=== PATIENT | male | born 1980 | race Caucasian/White ===

== ENCOUNTER 2018-07-29 22:55 | Emergency (ER) | payer OTHER ==
--- NOTE | 2018-07-29 23:06 | PDOC ---
History of Present Illness - General History Source: Patient Exam Limitations: No Limitations - History of Present Illness Initial Comments: 07/29/18 23:32 The patient is a 37 year old male, with a significant past medical history of diverticulitis who presents to the emergency department with 3 days of left upper quadrant abdominal pain. The patient notes he started feeling weird and out of it on Sunday and his pain has gradually gotten worse. The patient reports he felt constipated over the weekend and took laxative with relief. The patient notes this pain is similar to his prior diverticulitis. The patient notes the recurrent diverticulitis usually occurs when he is stressed. The patient notes he had a sandwich earlier today. The patient denies chest pain, shortness of breath, headache or dizziness. The patient denies fever, chills, nausea, or vomit. The patient denies dysuria, frequency, urgency or hematuria. Allergies: NKDA Past surgical history: None reported. Social history: Everyday smoker (5 cigarettes a day). No alcohol use. <Ruma Cazares - Last Filed: 07/29/18 23:31> <Shantelle Overton - Last Filed: 07/30/18 03:08> - General Chief Complaint: Pain, Acute Stated Complaint: PAIN LUQ SINCE SUNDAY Time Seen by Provider: 07/29/18 23:03 Past History <Ruma Cazares - Last Filed: 07/29/18 23:31> <Shantelle Overton - Last Filed: 07/30/18 03:08> - Past Medical History Allergies/Adverse Reactions: Allergies Allergy/AdvReac Type Severity Reaction Status Date / Time No Known Allergies Allergy Verified 07/29/18 22:59 Home Medications: Ambulatory Orders Dextroamphetamine/Amphetamine [Adderall 10 mg Tablet] 20 mg PO DAILY 07/29/18 Ciprofloxacin HCl [Cipro] 500 mg PO BID #20 tablet 07/30/18 metroNIDAZOLE [Flagyl -] 500 mg PO TID #30 tablet 07/30/18 Review of Systems - Review of Systems Able to Perform ROS?: Yes Comments:: 07/29/18 23:33 GENERAL/CONSTITUTIONAL: No fever or chills. No weakness. HEAD, EYES, EARS, NOSE AND THROAT: No change in vision. No ear pain or discharge. No sore throat. CARDIOVASCULAR: No chest pain or shortness of breath. RESPIRATORY: No cough, wheezing, or hemoptysis. GASTROINTESTINAL: (+) constipation. No nausea, vomiting, or diarrhea. GENITOURINARY: No dysuria, frequency, or change in urination. MUSCULOSKELETAL: (+) left upper quadrant abdominal pain. No neck or back pain. SKIN: No rash NEUROLOGIC: No headache, vertigo, loss of consciousness, or change in strength/ sensation. ENDOCRINE: No increased thirst. No abnormal weight change. HEMATOLOGIC/LYMPHATIC: No anemia, easy bleeding, or history of blood clots. ALLERGIC/IMMUNOLOGIC: No hives or skin allergy. All Other Systems: Reviewed and Negative <Ruma Cazares - Last Filed: 07/29/18 23:31> *Physical Exam - Vital Signs Last Vital Signs Temp Pulse Resp BP Pulse Ox 98.3 F 114 H 16 142/95 100 07/29/18 23:09 07/29/18 23:09 07/29/18 23:09 07/29/18 23:09 07/29/18 23:09 - Physical Exam Comments: 07/29/18 23:33 GENERAL: Awake, alert, and fully oriented, in no acute distress HEAD: No signs of trauma EYES: PERRLA, EOMI, sclera anicteric, conjunctiva clear ENT: Auricles normal inspection, hearing grossly normal, nares patent, oropharynx clear without exudates. Moist mucosa NECK: Normal ROM, supple, no lymphadenopathy, JVD, or masses LUNGS: Breath sounds equal, clear to auscultation bilaterally. No wheezes, and no crackles HEART: Regular rate and rhythm, normal S1 and S2, no murmurs, rubs or gallops ABDOMEN:(+) left upper quadrant abdominal tenderness. Soft, normoactive bowel sounds. No guarding, no rebound. No masses EXTREMITIES: Normal range of motion, no edema. No clubbing or cyanosis. No cords, erythema, or tenderness NEUROLOGICAL: Cranial nerves II through XII grossly intact. Normal speech, normal gait SKIN: Warm, Dry, normal turgor, no rashes or lesions noted. <Ruma Cazares - Last Filed: 07/29/18 23:31> Moderate Sedation - Procedure Monitoring Vital Signs: Procedure Monitoring Vital Signs Temperature 98.3 F 07/29/18 23:09 Pulse Rate 114 H 07/29/18 23:09 Respiratory Rate 16 07/29/18 23:09 Blood Pressure 142/95 07/29/18 23:09 O2 Sat by Pulse Oximetry (%) 100 07/29/18 23:09 <Ruma Cazares - Last Filed: 07/29/18 23:31> ED Treatment Course - LABORATORY CBC & Chemistry Diagram: 07/29/18 23:15 07/29/18 23:15 - ADDITIONAL ORDERS Additional order review: 07/29/18 23:15 RBC 5.33 MCV 90.6 MCHC 33.9 RDW 12.1 MPV 7.9 Neutrophils % 72.4 Lymphocytes % 18.3 Monocytes % 5.7 Eosinophils % 1.6 Basophils % 2.0 <Ruma Cazares - Last Filed: 07/29/18 23:31> - LABORATORY CBC & Chemistry Diagram: 07/29/18 23:15 07/29/18 23:15 <Shantelle Overton - Last Filed: 07/30/18 03:08> Progress Note - Progress Note Progress Note: Documentation has been prepared under my direction and personally reviewed by me in its entirety. I attest that this documented accurately reflects all work, treatment, procedures and medical decision making performed by me. <Shantelle Overton - Last Filed: 07/30/18 03:08> Medical Decision Making - Medical Decision Making As noted above, this 37-year-old man with a history of acute diverticulitis (4 previous episodes) but no other significant past medical history presents with a few day history of progressive left mid abdominal pain. The pain is very reminiscent of previous episodes of acute diverticulitis. He has no other associated symptoms. Exam as noted. CBC/chemistry profile sent. CBC notable for elevated white blood cell count 13, 700; no other significant abnormality seen on laboratory evaluation. Abdominal/pelvic CT with IV contrast performed: Preliminary interpretation by Imaging legal entity controller-uncomplicated diverticulitis of the descending colon just distal to the splenic flexure. No evidence of abscess or perforation. No other significant abnormality seen on the imaging study. Results discussed with the patient. The patient states that he previously has been treated with 2 antibiotic regimen. He recalls being on ciprofloxacin as well as Flagyl with good results. Patient given first dose of Cipro 500 mg/Flagyl 500 mg. Prescriptions for Cipro 500 mg twice a day and Flagyl 500 mg every 8 hours provided to patient ( sent to his pharmacy). Meanwhile, the patient should eat a light diet as tolerated. He should return to the ER if he has persistent vomiting or develops fever/severe abdominal pain. <Shantelle Overton - Last Filed: 07/30/18 03:08> *DC/Admit/Observation/Transfer - Attestations Scribe Attestion: 07/29/18 23:33 Documentation prepared by Ruma Cazares, acting as medical malpractice paralegal for Shantelle Overton MD <Ruma Cazares - Last Filed: 07/29/18 23:31> <Shantelle Overton - Last Filed: 07/30/18 03:08> Diagnosis at time of Disposition: Acute diverticulitis - Discharge Dispostion Disposition: HOME Condition at time of disposition: Stable - Prescriptions Prescriptions: Ciprofloxacin HCl [Cipro] 500 mg PO BID #20 tablet metroNIDAZOLE [Flagyl -] 500 mg PO TID #30 tablet - Patient Instructions Printed Discharge Instructions: Diverticulitis Additional Instructions: Drink plenty of water; light diet Cipro 500 mg twice a day for 10 days Flagyl 500 mg 3 times a day for 10 days Return to ER if you have severe, persistent pain/high fever/vomiting Follow-up with your exhaust worker on August 07 as scheduled
[2018-07-29 23:17] VITALS: BP 142/95; PULSE 114; TEMP 98.3; BMI 29.5
[2018-07-29 23:24] LABS: EOS % 1.6 % (0-4.5); HEMATOCRIT 48.3 % (35.4-49); HEMOGLOBIN 16.4 GM/dl (11.7-16.9); LYMPH % 18.3 % (8-40); MCH 30.7 pg (25.7-33.7); MCHC 33.9 g/dl (32.0-35.9); MEAN CELL VOLUME 90.6 fl (80-96); MEAN PLT VOLUME 7.9 fl (7.5-11.1); MONO % 5.7 % (3.8-10.2); NEUT % 72.4 % (42.8-82.8); PLATELET COUNT 302 K/MM3 (134-434); RBC 5.33 M/mm3 (4.00-5.60); RDW 12.1 % (11.9-15.9); WHITE BLOOD COUNT 13.7 K/mm3 (4.0-10.8)
[2018-07-29 23:39] LABS: ALBUMIN 4.3 g/dl (3.4-5.0); ALK PHOS 74 U/L (45-117); ANION GAP 10 MMOL/L (8-16); BILIRUBIN,TOTAL 0.8 mg/dl (0.2-1); BLOOD UREA NITROGEN 17 mg/dl (7-18); CALCIUM 9.9 mg/dl (8.5-10); CHLORIDE 97 mmol/L (98-107); CO2 29 mmol/L (21-32); CREATININE 1.1 mg/dl (0.55-1.3); GLUCOSE,RANDOM 140 mg/dl (74-106); POTASSIUM 3.7 mmol/L (3.5-5.1); SGOT/AST 20 U/L (15-37); SGPT/ALT 20 U/L (13-61); SODIUM 136 mmol/L (136-145)
[2018-07-29] MEDS ORDERED: SODIUM CHLORIDE 1,000 ML IV STA (23:42)
[2018-07-30] MEDS ORDERED: CIPROFLOXACIN 500 MG TABLET (RESTRICTED TO ID) PO ONE (00:37)
[2018-07-30] MEDS ORDERED: metroNIDAZOLE 250 MG TABLET PO ONE (00:37)
[2018-07-30] MEDS ORDERED: CIPROFLOXACIN 250 MG TABLET (RESTRICTED TO ID) PO ONE (00:39)
[2018-07-30] MEDS ORDERED: metroNIDAZOLE 250 MG TABLET ONE (00:39)
== END 2018-07-30 00:52 | disposition home or self-care (01) ==
LOC: FER 22:55
DX: K57.92 Diverticulitis of intestine, part unspecified, without perforation or abscess without bleeding (principal)
CPT/HCPCS: 36415; 74177-TC; 80053; 85025; 99281-25

== ENCOUNTER 2019-04-05 09:04 | Inpatient (IN) | payer OTHER ==
--- NOTE | 2019-04-05 09:47 | PDOC ---
History of Present Illness - General Chief Complaint: Pain Stated Complaint: RIGHT ABD PAIN Time Seen by Provider: 04/05/19 09:40 - History of Present Illness Initial Comments: 04/05/19 10:15 38 y/o M hx of ADHD and recurrent diverticulitis presents to the ER with 2 days of abdominal pain.He describes pain as sharp and diffuse but worse on his right side. Pain is 7/10 in severity and he took some flagyl he had at home with cbd oil but experienced no relief. Pain is exacerbated by movement and relieved with rest. Last bowel movement was two days ago and was unremarkable.He denies nausea, vomiting, diarrhea, tarry stool, bright blood per rectum, fevers, chills , urgency, hematuria, dysuria. Past History - Past Medical History Allergies/Adverse Reactions: Allergies Allergy/AdvReac Type Severity Reaction Status Date / Time No Known Allergies Allergy Verified 04/05/19 09:06 Home Medications: Ambulatory Orders Cannabidiol (Cbd) Extract ONCE 04/05/19 Dextroamphetamine/Amphetamine [Adderall Xr 20 mg Capsule] 20 mg PO DAILY PRN 07/23 metroNIDAZOLE [Flagyl -] 500 mg PO ONCE 04/05/19 COPD: No GI Disorders: Yes (DIVERTICULITIS X 5) - Psycho Social/Smoking Cessation Hx Smoking History: Current every day smoker Have you smoked in the past 12 months: Yes Number of Cigarettes Smoked Daily: 10 Information on smoking cessation initiated: Yes 'Breaking Loose' booklet given: 07/30/18 Hx Alcohol Use: No Drug/Substance Use Hx: No Review of Systems - Review of Systems Constitutional: No: Chills, Fever HEENTM: No: Eye Pain, Blurred Vision Respiratory: No: Cough, Shortness of Breath Cardiac (ROS): Yes: Lightheadedness. No: Chest Pain ABD/GI: No: Constipated, Nausea, Vomiting : No: Burning, Flank Pain, Hematuria Musculoskeletal: No: Back Pain, Muscle Pain Integumentary: No: Bruising, Change in Color Neurological: No: Headache, Numbness Hematologic/Lymphatic: No: Blood Clots, Easy Bleeding *Physical Exam - Vital Signs Last Vital Signs Temp Pulse Resp BP Pulse Ox 97.9 F 102 H 16 154/107 H 100 04/05/19 09:06 04/05/19 09:06 04/05/19 09:06 04/05/19 09:06 04/05/19 09:06 - Physical Exam Comments: 04/05/19 10:30 PE: GENERAL: Awake, alert, and fully oriented, in no acute distress HEAD: No signs of trauma, normocephalic, atraumatic EYES: EOMI, sclera anicteric, injected conjunctiva ENT: Auricles normal inspection, hearing grossly normal, nares patent, oropharynx clear without exudates. Moist mucosa NECK: Normal ROM, supple, no lymphadenopathy, JVD, or masses LUNGS: No distress, speaks full sentences, clear to auscultation bilaterally HEART: Regular rate and rhythm, normal S1 and S2, no murmurs, rubs or gallops, peripheral pulses normal and equal bilaterally. ABDOMEN: Soft,tenderness to palpation greater in the RUQ and RLQ. (+) guarding in RLQ. +rebound tenderness. EXTREMITIES : Normal inspection, Normal range of motion, no edema. No clubbing or cyanosis NEUROLOGICAL: Cranial nerves II through XII grossly intact. Normal speech, normal gait, SKIN: Warm, Dry, normal turgor, no rashes or lesions noted ED Treatment Course - LABORATORY CBC & Chemistry Diagram: 04/05/19 10:25 04/05/19 10:25 Medical Decision Making - Medical Decision Making 04/05/19 10:36 38 y/o M hx of ADHD and recurrent diverticulitis presents to the ER with 2 days of abdominal pain Meds: normal saline 1L, IV tylenol 1000mg cbc, cmp, lipase, abdomen and pelvis ct with contrast. 04/05/19 13:23 CT abdomen and pelvis -fat stranding around the cecum -calcification from diveriticuli -appendix not properly visualized. Dr. Ballard contacted, recommends -admission for inpatient treatment with antibiotics, IV fluids - pt to be made npo - will see patient tomorrow, recommends transfer to [facility] - After consultation with inpatient admitting team, patient will be admitted to [facility]. 04/05/19 17:59 Discharge - Discharge Information Condition: Good - Follow up/Referral - Patient Discharge Instructions - Post Discharge Activity
[2019-04-05] MEDS ORDERED: SODIUM CHLORIDE 0.9% 500 ML INFUS.BAG IV ONE ×2 (10:11→13:21)
[2019-04-05] MEDS ORDERED: ACETAMINOPHEN 1000 MG/100 ML VIAL (NON FORMULARY) IVPB ONE (10:12)
[2019-04-05] MEDS ORDERED: ACETAMINOPHEN INJECTION 100 ML IVPB ONE (10:14)
[2019-04-05 10:44] LABS: HEMOGLOBIN 16.3 GM/dl (11.7-16.9); WHITE BLOOD COUNT 13.9 K/mm3 (4.0-10.8)
[2019-04-05 10:50] LABS: HEMATOCRIT 47.5 % (35.4-49); MCH 31.4 pg (25.7-33.7); MCHC 34.3 g/dl (32.0-35.9); MEAN CELL VOLUME 91.7 fl (80-96); MEAN PLT VOLUME 7.9 fl (7.5-11.1); PLATELET COUNT 291 K/MM3 (134-434); RBC 5.18 M/mm3 (4.00-5.60); RDW 12.7 % (11.9-15.9)
[2019-04-05 10:52] LABS: ALBUMIN 4.1 g/dl (3.4-5.0); BILIRUBIN,TOTAL 0.8 mg/dl (0.2-1); CALCIUM 9.6 mg/dl (8.5-10); POTASSIUM 4.4 mmol/L (3.5-5.1); TOT PROT 6.6 g/dl (6.4-8.2)
[2019-04-05 11:16] LABS: PLATELET ESTIMATE ADEQUATE
--- NOTE | 2019-04-05 13:07 | PDOC ---
Attending Attestation - Resident Resident Name: Cecil Manuel - ED Attending Attestation I have performed the following: I have examined & evaluated the patient, The case was reviewed & discussed with the resident, I agree w/resident's findings & plan - HPI HPI: 04/05/19 13:05 38-year-old man with a history of recurrent episodes of diverticulitis. Patient presents with abdominal pain, diffuse as well as focal right lower quadrant pain, similar to prior episodes. In the past there was a concern whether he had diverticulitis or appendicitis, and the symptoms are similar. He has been having pain for a couple of days, worse today, difficulty sleeping overnight. No vomiting, no diarrhea. - Physicial Exam PE: 04/05/19 13:06 On examination, the patient appears a bit uncomfortable, but is calm and cooperative. Abdominal examination is the only notable part of the exam, with mild diffuse tenderness, much worse in the region of the right lower quadrant at McBurney's point. There is no significant guarding, there is mild rebound tenderness. - Medical Decision Making 04/05/19 13:06 Laboratory studies reviewed, notable for a white blood cell count of 13.9. Abdominal CT scan on preliminary review by me shows significant inflammatory changes around the region of the cecum and the appendix. The appendix is not well-visualized. There is significant fat stranding and inflammation in the region of the cecum and the appendix. Impression: Abdominal pain with leukocytosis and focal right lower quadrant tenderness. Differential includes acute appendicitis and acute cecal diverticulitis. Plan: IV antibiotics, n.p.o., surgical consultation.
--- NOTE | 2019-04-05 13:14 | CONSULT ---
Consult Consult Specialty:: General Surgery Reason for Consultation:: R/O acute appendicitis - History of Present Illness Chief Complaint: abdominal pain History of Present Illness: 38 yo male PMH diverticulitis, presents with abdominal pain since , focal to RU&LQ with no radiation. previous colonoscopy we were called to assess. - History Source History Provided By: Patient, Medical Record Limitations to Obtaining History: No Limitations - Past Medical History Gastrointestinal: Yes: Diverticulitis - Alcohol/Substance Use Hx Alcohol Use: No History of Substance Use: reports: Marijuana - Smoking History Smoking history: Current every day smoker Have you smoked in the past 12 months: Yes Aproximately how many cigarettes per day: 10 - Social History ADL: Independent Place of : [facility] History of Recent Travel: Yes Home Medications - Allergies Allergies/Adverse Reactions: Allergies Allergy/AdvReac Type Severity Reaction Status Date / Time No Known Allergies Allergy Verified 04/05/19 09:06 - Home Medications Home Medications: Ambulatory Orders Cannabidiol (Cbd) Extract ONCE 04/05/19 Dextroamphetamine/Amphetamine [Adderall Xr 20 mg Capsule] 20 mg PO DAILY PRN 07/23 metroNIDAZOLE [Flagyl -] 500 mg PO ONCE 04/05/19 Family Medical History Family History: Denies Physical Exam Vital Signs: Vital Signs Temperature 98.3 F 04/05/19 12:59 Pulse Rate 77 04/05/19 12:59 Respiratory Rate 20 04/05/19 12:59 Blood Pressure 148/91 04/05/19 12:59 O2 Sat by Pulse Oximetry (%) 100 04/05/19 12:59 Constitutional: Yes: Well Nourished, No Distress, Calm Eyes: Yes: Conjunctiva Clear, EOM Intact HENT: Yes: Atraumatic, Normocephalic Neck: Yes: Supple, Trachea Midline Cardiovascular: Yes: Regular Rate and Rhythm, S1, S2 Respiratory: Yes: Regular, CTA Bilaterally Gastrointestinal: Yes: Normal Bowel Sounds, Soft, Tenderness (RLQ) ...Rectal Exam: Yes: Sphincter Tone Normal Edema: No Peripheral Pulses WNL: Yes Neurological: Yes: Alert, Oriented Psychiatric: Yes: Alert, Oriented Labs: CBC, BMP 04/05/19 10:25 04/05/19 10:25 Problem List - Problems (1) Appendicitis Assessment/Plan: 38yo male with history of acute diverticulitis, Abdominal pain, CT scan shows fecoliths but no clear appendiceal inflammation, WBC 13.9 -> 14.7 ->12.9 no left shift, patient was offered appendectomy but refuses at this time. consider transfer to [facility] NPO and IVF hydration empiric broad spectrum IV antibiotics (cover G- and anaerobic) ID consult serial CBC Serial abdominal exams Possible appendectomy this admission if worsening Thank you for the opportunity to participate in the care of this patient. Problems reviewed: Yes Code(s): K37 - UNSPECIFIED APPENDICITIS Qualifiers: Appendicitis type: acute appendicitis Appendicitis gangrene presence: unspecified whether gangrene present Appendicitis abscess presence: unspecified whether abscess present (2) Abdominal pain in male Problems reviewed: Yes Code(s): R10.9 - UNSPECIFIED ABDOMINAL PAIN (3) Acute diverticulitis Problems reviewed: Yes Code(s): K57.92 - DVTRCLI OF INTEST, PART UNSP, W/O PERF OR ABSCESS W/O BLEED (4) Diverticulosis Problems reviewed: Yes Code(s): K57.90 - DVRTCLOS OF INTEST, PART UNSP, W/O PERF OR ABSCESS W/O BLEED (5) Diverticulosis large intestine w/o perforation or abscess w/bleeding Problems reviewed: Yes Code(s): K57.31 - DVRTCLOS OF LG INT W/O PERFORATION OR ABSCESS W BLEEDING
[2019-04-05] MEDS ORDERED: PIPERACILLIN/TAZOB 4.5 GM 4.5 GM in DEXTROSE 5%-WATER 100 ML IVPB ONE (13:16)
[2019-04-05] MEDS ORDERED: PIPERACILLIN/TAZOBACTAM 4.5 GM VIAL IVPB ONE (13:28)
--- NOTE | 2019-04-05 14:37 | HP ---
CHIEF COMPLAINT: RLQ pain PCP: None HISTORY OF PRESENT ILLNESS: This is a 38-year-old man with a history of recurrent episodes of diverticulitis, and ADHD,who presents to ER complaining of RLQ pain. Pt reports that pain started last night, symptoms were similar to previous diverticulitis. Pt denies fever, chills, N/V/D, dysuria, frequency,hematuria, cp, sob or palpitations. Last colonoscopy was about 6-7 yrs ago reported negative. ER course was notable for: (1)wbc 13.9, afebrile, (2)CT abdomen/pelvis:Suspicious for acute diverticulitis, inflammatory changes / edema of the appendix likely due to the presence of acute diverticulitis. (3) Lipase - normal Recent Travel: No PAST MEDICAL HISTORY: None PAST SURGICAL HISTORY: None Social History: Smoking:Yes, Alcohol:No Drugs: No Family History Father - CAD Mother ? blood clot Allergies No Known Allergies Allergy (Verified 04/05/19 09:06) HOME MEDICATIONS: Home Medications Medication Instructions Recorded Cannabidiol (Cbd) Extract ONCE 04/05/19 Dextroamphetamine/Amphetamine 20 mg PO DAILY PRN 04/05/19 [Adderall Xr 20 mg Capsule] metroNIDAZOLE [Flagyl -] 500 mg PO ONCE 04/05/19 REVIEW OF SYSTEMS CONSTITUTIONAL: Absent: fever, chills, diaphoresis, generalized weakness, malaise, loss of appetite, weight change HEENT: Absent: rhinorrhea, nasal congestion, throat pain, throat swelling, difficulty swallowing, mouth swelling, ear pain, eye pain, visual changes CARDIOVASCULAR: Absent: chest pain, syncope, palpitations, irregular heart rate, lightheadedness , peripheral edema RESPIRATORY: Absent: cough, shortness of breath, dyspnea with exertion, orthopnea, wheezing, stridor, hemoptysis GASTROINTESTINAL: Absent: RLQ abdominal pain, denies abdominal distension, nausea, vomiting, diarrhea, constipation, melena, hematochezia GENITOURINARY: Absent: dysuria, frequency, urgency, hesitancy, hematuria, flank pain, genital pain MUSCULOSKELETAL: Absent: myalgia, arthralgia, joint swelling, back pain, neck pain SKIN: Absent: rash, itching, pallor HEMATOLOGIC/IMMUNOLOGIC: Absent: easy bleeding, easy bruising, lymphadenopathy, frequent infections ENDOCRINE: Absent: unexplained weight gain, unexplained weight loss, heat intolerance, cold intolerance NEUROLOGIC: Absent: headache, focal weakness or paresthesias, dizziness, unsteady gait, seizure, mental status changes, bladder or bowel incontinence PSYCHIATRIC: Absent: anxiety, depression, suicidal or homicidal ideation, hallucinations. PHYSICAL EXAMINATION Vital Signs - 24 hr 04/05/19 04/05/19 04/05/19 09:06 12:59 14:08 Temperature 97.9 F 98.3 F 97.9 F Pulse Rate 102 H Pulse Rate [ 77 80 Right] Respiratory 16 20 15 Rate Blood Pressure 154/107 H Blood Pressure 148/91 [Left Arm] Blood Pressure 135/89 [Right Arm] O2 Sat by Pulse 100 100 97 Oximetry (%) GENERAL: Awake, alert, and fully oriented, in no acute distress. HEAD: Normal with no signs of trauma. EYES: Pupils equal, round and reactive to light, extraocular movements intact, sclera anicteric, conjunctiva clear. No lid lag. EARS, NOSE, THROAT: Ears normal, nares patent, oropharynx clear without exudates. Moist mucous membranes. NECK: Normal range of motion, supple without lymphadenopathy, JVD, or masses. LUNGS: Breath sounds equal, clear to auscultation bilaterally. No wheezes, and no crackles. No accessory muscle use. HEART: Regular rate and rhythm, normal S1 and S2 without murmur, rub or gallop. ABDOMEN: Soft,positive RLQ tenderness , not distended, normoactive bowel sounds , no guarding, no rebound, no masses. No hepatomegaly or splenomegaly. MUSCULOSKELETAL: Normal range of motion at all joints. No bony deformities or tenderness. No CVA tenderness. UPPER EXTREMITIES: 2+ pulses, warm, well-perfused. No cyanosis. No clubbing. No peripheral edema. LOWER EXTREMITIES: 2+ pulses, warm, well-perfused. No calf tenderness. No peripheral edema. NEUROLOGICAL: Cranial nerves II-XII intact. Normal speech. Normal gait. PSYCHIATRIC: Cooperative. Good eye contact. Appropriate mood and affect. SKIN: Warm, dry, normal turgor, no rashes or lesions noted, normal capillary refill. Laboratory Results - last 24 hr 04/05/19 04/05/19 04/05/19 10:25 10:25 10:25 WBC 13.9 H RBC 5.18 Hgb 16.3 Hct 47.5 MCV 91.7 MCH 31.4 MCHC 34.3 RDW 12.7 Plt Count 291 MPV 7.9 Absolute Neuts (auto) 9.5 Neutrophils % No Result Required. Neutrophils % (Manual) 54.0 Lymphocytes % No Result Required. Lymphocytes % (Manual) 36.0 Monocytes % (Manual) 2 L Eosinophils % (Manual) 1.0 Platelet Estimate Adequate Sodium 136 Potassium 4.4 Chloride 101 Carbon Dioxide 27 Anion Gap 8 BUN 17.0 Creatinine 1.0 Est GFR (CKD-EPI)AfAm 110.17 Est GFR (CKD-EPI)NonAf 95.05 Random Glucose 108 H Calcium 9.6 Total Bilirubin 0.8 AST 21 ALT 30 Alkaline Phosphatase 58 Total Protein 6.6 Albumin 4.1 Lipase 106 ASSESSMENT/PLAN: This is a 38-year-old man with a history of recurrent episodes of diverticulitis and ADHD, who presents to ER RLQ pain, admitted with acute diverticulitis. *Acute diverticulitis vs appendicitis - CT consistent with acute diverticulitis - Sx consulted, rec NPO and abx - pt received Zosyn in ER, will cont - BC ordered - will f/u on CBC - monitor fever - pain control -f/u on imaging *Hx of ADHD - on Adderall 20mg PRN * VTE: Heparin SQ * F/E/N: NPO Replace electrolytes as needed Visit type - Emergency Visit Emergency Visit: Yes ED Registration Date: 04/05/19 Care time: The patient presented to the Emergency Department on the above date and was hospitalized for further evaluation of their emergent condition. - New Patient This patient is new to me today: Yes Date on this admission: 04/06/19 - Critical Care Critical Care patient: No
[2019-04-05] MEDS ORDERED: PATIENT'S OWN MEDICATION (NON-FORMULARY) (Dextroamphetamine/Amphetamine [Adderall Xr 20 Mg PO PRN (15:44)
[2019-04-05] MEDS ORDERED: morphine CARPU-JECT 2 MG/1 ML DISP.SYRIN ONE (17:28)
[2019-04-05] MEDS ORDERED: PIPERACILLIN/TAZOBACTAM 3.375 GM VIAL IVPB ONE (17:33)
[2019-04-05] MEDS ORDERED: DEXTROSE 5%-WATER - 50 ML IVPB ONE (17:33)
[2019-04-05] MEDS: PIPERACILLIN/TAZOB 3.375 GM 3.375 GM in DEXTROSE 5%-WATER - 50 ML IVPB SCH (17:44)
[2019-04-05] MEDS: DEXTROSE 5%-NORMAL SALINE 1,000 ML IV SCH (18:00)
[2019-04-05 18:32] VITALS: BMI 30.2
[2019-04-05] MEDS: morphine CARPU-JECT 4 MG/1 ML DISP.SYRIN IVPUSH PRN (18:42)
[2019-04-05] MEDS: HEPARIN NA (PORCINE) 5,000 UNITS/ML 1ML VIAL SQ SCH (21:32)
[2019-04-05 22:26] LABS: BASO % 0.6 % (0-2.0); EOS % 1.5 % (0-4.5); HEMOGLOBIN 15.6 GM/dl (11.7-16.9); MCH 31.1 pg (25.7-33.7); MEAN CELL VOLUME 91.7 fl (80-96); MEAN PLT VOLUME 7.7 fl (7.5-11.1); MONO % 5.4 % (3.8-10.2); NEUT % 65.5 % (42.8-82.8); PLATELET COUNT 277 K/MM3 (134-434); RBC 5.01 M/mm3 (4.00-5.60); RDW 12.4 % (11.9-15.9); WHITE BLOOD COUNT 14.7 K/mm3 (4.0-10.8)
[2019-04-06] MEDS ORDERED: PIPERACILLIN/TAZOBACTAM 3.375 GM VIAL IVPB ONE ×3 (00:16→15:45)
[2019-04-06] MEDS ORDERED: DEXTROSE 5%-WATER - 50 ML IVPB ONE ×3 (00:17→15:45)
[2019-04-06] MEDS: PIPERACILLIN/TAZOB 3.375 GM 3.375 GM in DEXTROSE 5%-WATER - 50 ML IVPB SCH ×3 (01:07→18:25)
[2019-04-06] MEDS ORDERED: LACTATED RINGERS SOLUTION 1,000 ML/1,000 ML INFUS.BAG IV SCH (02:30)
[2019-04-06] MEDS: HEPARIN NA (PORCINE) 5,000 UNITS/ML 1ML VIAL SQ SCH ×3 (06:50→21:39)
[2019-04-06 09:02] LABS: BASO % 0.5 % (0-2.0); EOS % 0.9 % (0-4.5); HEMATOCRIT 45.5 % (35.4-49); HEMOGLOBIN 15.9 GM/dl (11.7-16.9); LYMPH % 24.3 % (8-40); MCH 31.8 pg (25.7-33.7); MCHC 34.8 g/dl (32.0-35.9); MEAN CELL VOLUME 91.3 fl (80-96); MEAN PLT VOLUME 8.2 fl (7.5-11.1); MONO % 5.3 % (3.8-10.2); PLATELET COUNT 270 K/MM3 (134-434); RBC 4.99 M/mm3 (4.00-5.60); RDW 12.2 % (11.9-15.9); WHITE BLOOD COUNT 12.9 K/mm3 (4.0-10.8)
[2019-04-06 09:20] LABS: CALCIUM 8.8 mg/dl (8.5-10); CREATININE 0.9 mg/dl (0.55-1.3); POTASSIUM 4.2 mmol/L (3.5-5.1)
[2019-04-06] MEDS: NICOTINE 14 MG/24 HOURS TOPICAL PATCH TD SCH (10:30)
--- NOTE | 2019-04-06 10:33 | PN ---
Physical Exam: SUBJECTIVE: Patient seen and examined, c/o pain in RLQ pt seen by surgery, recommended appendectomy this admission, pt refusing surgery at this time. pt would like to resolve diverticulitis WBC trending down OBJECTIVE: Vital Signs Period Temp Pulse Resp BP Sys/Berger Pulse Ox Last 24 Hr 97.8 F-99.1 F 77-95 15-20 135-165/77-93 96-100 GENERAL: The patient is awake, alert, and fully oriented, in no acute distress. HEAD: Normal with no signs of trauma. EYES: PERRL, extraocular movements intact, sclera anicteric, conjunctiva clear. No ptosis. ENT: Ears normal, nares patent, oropharynx clear without exudates, moist mucous membranes. NECK: Trachea midline, full range of motion, supple. LUNGS: Breath sounds equal, clear to auscultation bilaterally, no wheezes, no crackles, no accessory muscle use. HEART: Regular rate and rhythm, S1, S2 without murmur, rub or gallop. ABDOMEN: Soft, tender RLQ , nondistended, normoactive bowel sounds, no guarding , no rebound, no hepatosplenomegaly, no masses. EXTREMITIES: 2+ pulses, warm, well-perfused, no edema. NEUROLOGICAL: Cranial nerves II through XII grossly intact. Normal speech, gait not observed. PSYCH: Normal mood, normal affect. SKIN: Warm, dry, normal turgor, no rashes or lesions noted Laboratory Results - last 24 hr 04/05/19 04/05/19 04/05/19 10:25 15:30 22:00 WBC 14.7 H RBC 5.01 Hgb 15.6 Hct 46.0 MCV 91.7 MCH 31.1 MCHC 34.0 RDW 12.4 Plt Count 277 MPV 7.7 Absolute Neuts (auto) 9.6 Neutrophils % 65.5 Lymphocytes % 27.0 D Monocytes % 5.4 Eosinophils % 1.5 Basophils % 0.6 Sodium Potassium Chloride Carbon Dioxide Anion Gap BUN Creatinine Est GFR (CKD-EPI)AfAm Est GFR (CKD-EPI)NonAf Random Glucose Calcium Lipase 106 Urine Color Yellow Urine Appearance Clear Urine pH 5.5 Urine Protein Trace Urine Glucose (UA) Negative Urine Ketones Negative Urine Blood Negative Urine Nitrite Negative Urine Bilirubin Negative Urine Urobilinogen 0.2 Ur Leukocyte Esterase Negative 04/06/19 04/06/19 06:00 06:00 WBC 12.9 H RBC 4.99 Hgb 15.9 Hct 45.5 MCV 91.3 MCH 31.8 MCHC 34.8 RDW 12.2 Plt Count 270 MPV 8.2 Absolute Neuts (auto) 8.9 Neutrophils % 69.0 Lymphocytes % 24.3 Monocytes % 5.3 Eosinophils % 0.9 Basophils % 0.5 Sodium 137 Potassium 4.2 Chloride 102 Carbon Dioxide 23 Anion Gap 12 BUN 11.0 Creatinine 0.9 Est GFR (CKD-EPI)AfAm 125.13 Est GFR (CKD-EPI)NonAf 107.97 Random Glucose 119 H Calcium 8.8 Lipase Urine Color Urine Appearance Urine pH Urine Protein Urine Glucose (UA) Urine Ketones Urine Blood Urine Nitrite Urine Bilirubin Urine Urobilinogen Ur Leukocyte Esterase Active Medications Generic Name Dose Route Start Last Admin Trade Name Freq PRN Reason Stop Dose Admin Heparin Sodium (Porcine) 5,000 unit 04/05/19 22:00 04/06/19 06:50 Heparin - SQ 5,000 unit TID MARK Administration Dextrose/Sodium Chloride 1,000 mls @ 75 mls/hr 04/05/19 14:45 04/05/19 18:00 D5-Ns - IV 75 mls/hr ASDIR MARK Administration Piperacillin Sod/Tazobactam 50 mls @ 100 mls/hr 04/05/19 18:00 04/06/19 01: 07 EST Sod 3.375 gm/ Dextrose IVPB 100 mls/hr Q8H-IV MARK Administration Protocol Morphine Sulfate 2 mg 04/05/19 14:40 04/05/19 18:42 Morphine Injection - IVPUSH 2 mg Q4H PRN Administration PAIN LEVEL 6-10 Nicotine 14 mg 04/06/19 10:00 Nicoderm Patch - TD DAILY MARK Non-Formulary Medication 20 mg 04/05/19 15:44 Dextroamphetamine/Amphetamine [Adderall Xr 20 Mg Capsule] PO DAILY PRN ANXIETY ASSESSMENT/PLAN: This is a 38-year-old man with a history of recurrent episodes of diverticulitis and ADHD, who presents to ER RLQ pain, admitted with acute diverticulitis. *Acute diverticulitis vs appendicitis - CT consistent with acute diverticulitis - Sx consulted, rec NPO and abx -c/w Zosyn - BC in process - pain mgt *Hx of ADHD - on Adderall 20mg PRN * VTE: Heparin SQ * F/E/N: NPO Replace electrolytes as needed Visit type - Emergency Visit Emergency Visit: Yes ED Registration Date: 04/05/19 Care time: The patient presented to the Emergency Department on the above date and was hospitalized for further evaluation of their emergent condition. - New Patient This patient is new to me today: Yes Date on this admission: 04/06/19 - Critical Care Critical Care patient: No
[2019-04-06] MEDS ORDERED: morphine CARPU-JECT 2 MG/1 ML DISP.SYRIN ONE (15:44)
[2019-04-06] MEDS: morphine CARPU-JECT 4 MG/1 ML DISP.SYRIN IVPUSH PRN (15:47)
[2019-04-06] MEDS: DEXTROSE 5%-NORMAL SALINE 1,000 ML IV SCH (15:53)
[2019-04-07] MEDS ORDERED: PIPERACILLIN/TAZOBACTAM 3.375 GM VIAL IVPB ONE ×2 (02:27→09:07)
[2019-04-07] MEDS ORDERED: DEXTROSE 5%-WATER - 50 ML IVPB ONE ×2 (02:27→09:07)
[2019-04-07] MEDS ORDERED: morphine CARPU-JECT 2 MG/1 ML DISP.SYRIN IVPUSH PRN (02:29)
[2019-04-07] MEDS: PIPERACILLIN/TAZOB 3.375 GM 3.375 GM in DEXTROSE 5%-WATER - 50 ML IVPB SCH ×3 (02:34→18:07)
[2019-04-07] MEDS: morphine CARPU-JECT 4 MG/1 ML DISP.SYRIN IVPUSH PRN (02:34)
[2019-04-07] MEDS ORDERED: HEPARIN NA (PORCINE) 5,000 UNITS/ML 1ML VIAL ONE (05:28)
[2019-04-07] MEDS: HEPARIN NA (PORCINE) 5,000 UNITS/ML 1ML VIAL SQ SCH ×3 (05:29→21:15)
[2019-04-07 08:04] LABS: BASO % 0.6 % (0-2.0); EOS % 1.3 % (0-4.5); HEMATOCRIT 48.8 % (35.4-49); HEMOGLOBIN 16.4 GM/dl (11.7-16.9); LYMPH % 22.8 % (8-40); MCH 30.8 pg (25.7-33.7); MCHC 33.6 g/dl (32.0-35.9); MEAN CELL VOLUME 91.8 fl (80-96); NEUT % 69.3 % (42.8-82.8); PLATELET COUNT 268 K/MM3 (134-434); RBC 5.31 M/mm3 (4.00-5.60); RDW 12.3 % (11.9-15.9); WHITE BLOOD COUNT 13.2 K/mm3 (4.0-10.8)
[2019-04-07 08:23] LABS: ALBUMIN 3.6 g/dl (3.4-5.0); BILIRUBIN,TOTAL 0.9 mg/dl (0.2-1); CALCIUM 9.1 mg/dl (8.5-10); MAGNESIUM 2.1 mg/dL (1.8-2.4); POTASSIUM 4.4 mmol/L (3.5-5.1); TOT PROT 6.5 g/dl (6.4-8.2)
--- NOTE | 2019-04-07 09:44 | PN ---
Physical Exam: SUBJECTIVE: Patient seen and examined at bedside. OBJECTIVE: Vital Signs Period Temp Pulse Resp BP Sys/Berger Pulse Ox Last 24 Hr 98.1 F-99.4 F 80-95 16-17 146-154/80-89 95-99 GENERAL: The patient is awake, alert, and fully oriented, in no acute distress. LUNGS: Breath sounds equal, clear to auscultation bilaterally, no wheezes, no crackles, no accessory muscle use. HEART: Regular rate and rhythm, S1, S2 without murmur, rub or gallop. ABDOMEN: Mild RLQ tenderness EXTREMITIES: 2+ pulses, warm, well-perfused, no edema. NEUROLOGICAL: Cranial nerves II through XII grossly intact. Normal speech, gait not observed. SKIN: Warm, dry, normal turgor Laboratory Results - last 24 hr 04/07/19 04/07/19 07:20 07:20 WBC 13.2 H RBC 5.31 Hgb 16.4 Hct 48.8 MCV 91.8 MCH 30.8 MCHC 33.6 RDW 12.3 Plt Count 268 MPV 8.0 Absolute Neuts (auto) 9.1 Neutrophils % 69.3 Lymphocytes % 22.8 Monocytes % 6.0 Eosinophils % 1.3 Basophils % 0.6 Sodium 137 Potassium 4.4 Chloride 102 Carbon Dioxide 25 Anion Gap 10 BUN 11.0 Creatinine 1.0 Est GFR (CKD-EPI)AfAm 110.17 Est GFR (CKD-EPI)NonAf 95.05 Random Glucose 120 H Calcium 9.1 Magnesium 2.1 Total Bilirubin 0.9 AST 16 ALT 24 Alkaline Phosphatase 53 Total Protein 6.5 Albumin 3.6 Active Medications Generic Name Dose Route Start Last Admin Trade Name Edy PRN Reason Stop Dose Admin Heparin Sodium (Porcine) 5,000 unit 04/05/19 22:00 04/07/19 05:29 Heparin - SQ 5,000 unit TID MARK Administration Dextrose/Sodium Chloride 1,000 mls @ 75 mls/hr 04/05/19 14:45 04/06/19 15:53 D5-Ns - IV 75 mls/hr ASDIR MARK Administration Piperacillin Sod/Tazobactam 50 mls @ 100 mls/hr 04/05/19 18:00 04/07/19 02:34 Sod 3.375 gm/ Dextrose IVPB 100 mls/hr Q8H-IV MARK Administration Protocol Nicotine 14 mg 04/06/19 10:00 04/06/19 10:30 Nicoderm Patch - TD 14 mg DAILY MARK Administration Non-Formulary Medication 20 mg 04/05/19 15:44 Dextroamphetamine/Amphetamine [Adderall Xr 20 Mg Capsule] PO DAILY PRN ANXIETY ASSESSMENT/PLAN: 38 year-old male with a PMH significant for diverticulitis, admitted for acute cecal diverticulitis Acute cecal diverticulitis --this is patient's fifth diverticulitis flare over past 7 years; he does not seek regular medical care, has been treated in EDs including [facility] --continues to have RLQ pain and persistent leukocytosis, afebrile --continue Zosyn (day #3) r/o Appendicitis --inflammation seen, may be secondary to diverticulitis --seen and evaluated by surgery, patient declines elective appendectomy FEN Fluids: D5NS@100mL/hr Electrolytes: replete as indicated Nutrition: NPO DVT prophylaxis: subq heparin Dispo: continues to require inpatient care. Full code. Visit type - Emergency Visit Emergency Visit: Yes ED Registration Date: 04/05/19 Care time: The patient presented to the Emergency Department on the above date and was hospitalized for further evaluation of their emergent condition. - New Patient This patient is new to me today: Yes Date on this admission: 04/07/19 - Critical Care Critical Care patient: No
[2019-04-07] MEDS: NICOTINE 14 MG/24 HOURS TOPICAL PATCH TD SCH (10:08)
[2019-04-07] MEDS: DEXTROSE 5%-NORMAL SALINE 1,000 ML IV SCH (14:05)
--- NOTE | 2019-04-07 14:08 | CON.ID ---
Consult - Past Medical History Gastrointestinal: Yes: Diverticulitis - Alcohol/Substance Use Hx Alcohol Use: No History of Substance Use: reports: Marijuana - Smoking History Smoking history: Current every day smoker Have you smoked in the past 12 months: Yes Aproximately how many cigarettes per day: 10 - Social History ADL: Independent History of Recent Travel: Yes Home Medications - Allergies Allergies/Adverse Reactions: Allergies Allergy/AdvReac Type Severity Reaction Status Date / Time No Known Allergies Allergy Verified 04/05/19 09:06 - Home Medications Home Medications: Ambulatory Orders Cannabidiol (Cbd) Extract ONCE 04/05/19 Dextroamphetamine/Amphetamine [Adderall Xr 20 mg Capsule] 20 mg PO DAILY PRN 07/23 metroNIDAZOLE [Flagyl -] 500 mg PO ONCE 04/05/19 Physical Exam Vital Signs: Vital Signs Temperature 98.4 F 04/07/19 06:30 Pulse Rate 80 04/07/19 06:30 Respiratory Rate 16 04/07/19 06:30 Blood Pressure 154/89 04/07/19 06:30 O2 Sat by Pulse Oximetry (%) 98 04/07/19 06:30 Labs: CBC, BMP 04/07/19 07:20 04/07/19 07:20
[2019-04-08] MEDS ORDERED: DEXTROSE 5%-WATER - 50 ML IVPB ONE ×4 (01:38→23:55)
[2019-04-08] MEDS ORDERED: PIPERACILLIN/TAZOBACTAM 3.375 GM VIAL IVPB ONE ×4 (01:38→23:55)
[2019-04-08] MEDS: PIPERACILLIN/TAZOB 3.375 GM 3.375 GM in DEXTROSE 5%-WATER - 50 ML IVPB SCH ×3 (01:42→17:20)
[2019-04-08] MEDS: HEPARIN NA (PORCINE) 5,000 UNITS/ML 1ML VIAL SQ SCH ×3 (06:11→21:43)
[2019-04-08 07:57] LABS: BASO % 0.8 % (0-2.0); EOS % 2.4 % (0-4.5); HEMATOCRIT 45.1 % (35.4-49); HEMOGLOBIN 15.3 GM/dl (11.7-16.9); LYMPH % 31.7 % (8-40); MCHC 33.9 g/dl (32.0-35.9); MEAN CELL VOLUME 91.4 fl (80-96); MONO % 6.5 % (3.8-10.2); NEUT % 58.6 % (42.8-82.8); PLATELET COUNT 283 K/MM3 (134-434); RBC 4.94 M/mm3 (4.00-5.60); RDW 12.3 % (11.9-15.9); WHITE BLOOD COUNT 9.5 K/mm3 (4.0-10.8)
[2019-04-08 08:19] LABS: ALBUMIN 3.3 g/dl (3.4-5.0); BILIRUBIN,TOTAL 0.6 mg/dl (0.2-1); CALCIUM 8.6 mg/dl (8.5-10); CREATININE 1.1 mg/dl (0.55-1.3); MAGNESIUM 2.1 mg/dL (1.8-2.4); POTASSIUM 4.3 mmol/L (3.5-5.1); TOT PROT 6.4 g/dl (6.4-8.2)
--- NOTE | 2019-04-08 09:55 | PN ---
Physical Exam: SUBJECTIVE: Patient seen and examined. RLQ pain persists, worse with movement. No nausea, vomiting, diarrhea. Sweating which patient says is his baseline. Advised patient that yesterday's CT shows worsening inflammation and again discussed surgical option. Patient wants to avoid surgery if at all possible and wants to be medically managed. Understands may involve a longer hospital stay and no guarantee he won't need surgery during this visit. OBJECTIVE: Vital Signs Period Temp Pulse Resp BP Sys/Berger Pulse Ox Last 24 Hr 98.4 F-99.7 F 68-85 1-18 130-135/74-80 97-98 GENERAL: The patient is awake, alert, and fully oriented, in no acute distress. Pale. Sweaty. LUNGS:CTA HEART: Regular rate and rhythm, S1, S2 ABDOMEN: RLQ tenderness EXTREMITIES: 2+ pulses, warm, well-perfused, no edema. NEUROLOGICAL: Cranial nerves II through XII grossly intact. Normal speech, gait not observed. Laboratory Results - last 24 hr 04/07/19 04/08/19 04/08/19 14:30 07:07 07:07 WBC 9.5 RBC 4.94 Hgb 15.3 Hct 45.1 MCV 91.4 MCH 31.0 MCHC 33.9 RDW 12.3 Plt Count 283 MPV 8.0 Absolute Neuts (auto) 5.6 Neutrophils % 58.6 Lymphocytes % 31.7 D Monocytes % 6.5 Eosinophils % 2.4 D Basophils % 0.8 Sodium 137 Potassium 4.3 Chloride 108 H Carbon Dioxide 23 Anion Gap 6 L BUN 11.0 Creatinine 1.1 Est GFR (CKD-EPI)AfAm 98.18 Est GFR (CKD-EPI)NonAf 84.71 Random Glucose 120 H Lactic Acid 0.9 Calcium 8.6 Magnesium 2.1 Total Bilirubin 0.6 AST 15 ALT 22 Alkaline Phosphatase 45 Total Protein 6.4 Albumin 3.3 L Active Medications Generic Name Dose Route Start Last Admin Trade Name Freq PRN Reason Stop Dose Admin Heparin Sodium (Porcine) 5,000 unit 04/05/19 22:00 04/08/19 06:11 Heparin - SQ 5,000 unit TID MARK Administration Piperacillin Sod/Tazobactam 50 mls @ 100 mls/hr 04/05/19 18:00 04/08/19 01:42 Sod 3.375 gm/ Dextrose IVPB 100 mls/hr Q8H-IV MARK Administration Protocol Dextrose/Sodium Chloride 1,000 mls @ 100 mls/hr 04/07/19 13:18 04/07/19 14:05 D5-Ns - IV 100 mls/hr ASDIR MARK Administration Nicotine 14 mg 04/06/19 10:00 04/07/19 10:08 Nicoderm Patch - TD Not Given DAILY MARK Non-Formulary Medication 20 mg 04/05/19 15:44 Dextroamphetamine/Amphetamine [Adderall Xr 20 Mg Capsule] PO DAILY PRN ANXIETY ASSESSMENT/PLAN: 38 year-old male with a PMH significant for diverticulitis, admitted for acute cecal diverticulitis Acute cecal diverticulitis --repeat CTAP on 04/07 shows worsening of wall thickening and pericecal edema , no perforation or abscess --RLQ tenderness is more pronounced --has been afebrile, leukocytosis has resolved --continue Zosyn (day #4) --seen and evaluated on 04/[address] Ballard who discussed surgical options with patient but patient expressed preference for medical management; unfortunately, Dr. Ballard on 04/07; discussed the case with his colleague Dr. Rice this morning; we will continue to medically manage the patient for now; if he medically improves he should follow up as outpatient for elective procedure; if he worsens Dr. Rice remains available r/o Appendicitis --repeat CTAP on 04/07, no CT evidence of appendicitis FEN Fluids: D5NS@100mL/hr Electrolytes: replete as indicated Nutrition: NPO DVT prophylaxis: subq heparin Dispo: continues to require inpatient care. Full code. Visit type - Emergency Visit Emergency Visit: Yes ED Registration Date: 04/05/19 Care time: The patient presented to the Emergency Department on the above date and was hospitalized for further evaluation of their emergent condition. - New Patient This patient is new to me today: No - Critical Care Critical Care patient: No
[2019-04-08] MEDS: NICOTINE 14 MG/24 HOURS TOPICAL PATCH TD SCH ×2 (10:04→10:12)
[2019-04-08] MEDS: DEXTROSE 5%-NORMAL SALINE 1,000 ML IV SCH (13:00)
--- NOTE | 2019-04-08 15:23 | PN ---
Progress Note, Physician History of Present Illness: had more pain last night now feels better wbc has trended down - Current Medication List Current Medications: Active Medications Heparin Sodium (Porcine) (Heparin -) 5,000 unit SQ TID [facility] Last Admin: 04/08/19 06:11 Dose: 5,000 unit Piperacillin Sod/Tazobactam (Sod 3.375 gm/ Dextrose) 50 mls @ 100 mls/hr IVPB Q8H-IV MARK; Protocol Last Admin: 04/08/19 10:05 Dose: 100 mls/hr Dextrose/Sodium Chloride (D5-Ns -) 1,000 mls @ 100 mls/hr IV ASDIR [facility] Last Admin: 04/07/19 14:05 Dose: 100 mls/hr Nicotine (Nicoderm Patch -) 14 mg TD DAILY [facility] Last Admin: 04/08/19 10:12 Dose: Not Given Non-Formulary Medication (Dextroamphetamine/Amphetamine [Adderall Xr 20 Mg Capsule]) 20 mg PO DAILY PRN PRN Reason: ANXIETY - Objective Vital Signs: Vital Signs Temperature 97.7 F 04/08/19 14:31 Pulse Rate 81 04/08/19 14:31 Respiratory Rate 18 04/08/19 14:31 Blood Pressure 123/75 04/08/19 14:31 O2 Sat by Pulse Oximetry (%) 98 04/08/19 14:31 Constitutional: Yes: Calm, Mild Distress Cardiovascular: Yes: Regular Rate and Rhythm Respiratory: Yes: Regular, CTA Bilaterally Gastrointestinal: Yes: Soft, Other (absent bowel sounds) Musculoskeletal: Yes: WNL Extremities: Yes: WNL Neurological: Yes: Alert, Oriented Psychiatric: Yes: Alert, Oriented Labs: CBC, BMP 04/08/19 07:07 04/08/19 07:07 Assessment/Plan 38 year-old male with a PMH significant for diverticulitis, admitted for acute cecal diverticulitis Acute cecal diverticulitis abd pain leukocytosis nausea plan continue current mgmt continue abx close watch ct seen npo rest as per the team
[2019-04-08] MEDS ORDERED: MELATONIN 5 MG TABLETS PO PRN (20:50)
[2019-04-09] MEDS: PIPERACILLIN/TAZOB 3.375 GM 3.375 GM in DEXTROSE 5%-WATER - 50 ML IVPB SCH ×3 (02:05→18:29)
[2019-04-09] MEDS: HEPARIN NA (PORCINE) 5,000 UNITS/ML 1ML VIAL SQ SCH ×3 (05:35→21:24)
[2019-04-09 07:49] LABS: ACTIVATED PTT 29.5 SECONDS (25.2-36.5)
[2019-04-09 07:51] LABS: BASO % 0.7 % (0-2.0); EOS % 3.2 % (0-4.5); HEMATOCRIT 42.9 % (35.4-49); HEMOGLOBIN 14.8 GM/dl (11.7-16.9); MCH 31.7 pg (25.7-33.7); MCHC 34.5 g/dl (32.0-35.9); MEAN CELL VOLUME 91.8 fl (80-96); MONO % 6.7 % (3.8-10.2); NEUT % 49.4 % (42.8-82.8); PLATELET COUNT 276 K/MM3 (134-434); RBC 4.67 M/mm3 (4.00-5.60); RDW 12.2 % (11.9-15.9); WHITE BLOOD COUNT 7.4 K/mm3 (4.0-10.8)
[2019-04-09 07:53] LABS: ALBUMIN 3.2 g/dl (3.4-5.0); BILIRUBIN,TOTAL 0.2 mg/dl (0.2-1); CALCIUM 8.6 mg/dl (8.5-10); CREATININE 1.1 mg/dl (0.55-1.3); POTASSIUM 4.5 mmol/L (3.5-5.1); TOT PROT 6.1 g/dl (6.4-8.2)
[2019-04-09 07:54] LABS: INR 1.16 (0.82-1.09); PROTHROMBIN TIME (PATIENT) 12.9 SEC (10.2-13.0)
[2019-04-09] MEDS ORDERED: DEXTROSE 5%-WATER - 50 ML IVPB ONE ×2 (10:05→18:18)
[2019-04-09] MEDS ORDERED: PIPERACILLIN/TAZOBACTAM 3.375 GM VIAL IVPB ONE ×2 (10:05→18:18)
[2019-04-09] MEDS: NICOTINE 14 MG/24 HOURS TOPICAL PATCH TD SCH (10:10)
--- NOTE | 2019-04-09 11:03 | PN ---
Physical Exam: SUBJECTIVE: Patient seen and examined. Pain is much improved. Showered, has been ambulating, feels better, hungry. OBJECTIVE: Vital Signs Period Temp Pulse Resp BP Sys/Berger Pulse Ox Last 24 Hr 97.7 F-98.6 F 67-83 17-18 117-134/67-83 98-100 GENERAL: The patient is awake, alert, and fully oriented, in no acute distress. LUNGS:CTA HEART: Regular rate and rhythm, S1, S2 ABDOMEN: RLQ tenderness EXTREMITIES: 2+ pulses, warm, well-perfused, no edema. NEUROLOGICAL: Cranial nerves II through XII grossly intact. Normal speech, gait not observed. Laboratory Results - last 24 hr 04/09/19 04/09/19 04/09/19 07:10 07:10 07:10 WBC 7.4 RBC 4.67 Hgb 14.8 Hct 42.9 MCV 91.8 MCH 31.7 MCHC 34.5 RDW 12.2 Plt Count 276 MPV 8.0 Absolute Neuts (auto) 3.6 Neutrophils % 49.4 Lymphocytes % 40.0 D Monocytes % 6.7 Eosinophils % 3.2 Basophils % 0.7 PT with INR 12.9 INR 1.16 PTT (Actin FS) 29.5 Sodium 139 Potassium 4.5 Chloride 107 Carbon Dioxide 25 Anion Gap 7 L BUN 12.0 Creatinine 1.1 Est GFR (CKD-EPI)AfAm 98.18 Est GFR (CKD-EPI)NonAf 84.71 Random Glucose 112 H Calcium 8.6 Magnesium 2.0 Total Bilirubin 0.2 AST 14 L ALT 18 Alkaline Phosphatase 41 L Total Protein 6.1 L Albumin 3.2 L Active Medications Generic Name Dose Route Start Last Admin Trade Name Freq PRN Reason Stop Dose Admin Heparin Sodium (Porcine) 5,000 unit 04/05/19 22:00 04/09/19 05:35 Heparin - SQ 5,000 unit TID MARK Administration Piperacillin Sod/Tazobactam 50 mls @ 100 mls/hr 04/05/19 18:00 04/09/19 10:10 Sod 3.375 gm/ Dextrose IVPB 100 mls/hr Q8H-IV MARK Administration Protocol Dextrose/Sodium Chloride 1,000 mls @ 100 mls/hr 04/07/19 13:18 04/08/19 13:00 D5-Ns - IV 100 mls/hr ASDIR MARK Administration Melatonin 5 mg 04/08/19 20:50 04/08/19 21:43 Melatonin PO 5 mg HS PRN Administration INSOMNIA Nicotine 14 mg 04/06/19 10:00 04/09/19 10:10 Nicoderm Patch - TD Not Given DAILY MARK Non-Formulary Medication 20 mg 04/05/19 15:44 Dextroamphetamine/Amphetamine [Adderall Xr 20 Mg Capsule] PO DAILY PRN ANXIETY ASSESSMENT/PLAN: 38 year-old male with a PMH significant for diverticulitis, admitted for acute cecal diverticulitis Acute cecal diverticulitis --pain improved --afebrile, leukocytosis resolved --continue Zosyn (day #5) --seen and evaluated on 04/[address] Ballard who discussed surgical options with patient but patient expressed preference for medical management; unfortunately, Dr. Ballard on 04/07; discussed the case with his colleague Dr. Rice this morning; we will continue to medically manage the patient for now; if he medically improves he should follow up as outpatient for elective procedure; if he worsens Dr. Rice remains available r/o Appendicitis --repeat CTAP on 04/07, no CT evidence of appendicitis Hyperglycemia --glucose running 110s on D5NS, will switch to NS FEN Fluids: NS@75mL/hr Electrolytes: replete as indicated Nutrition: start trial of clears DVT prophylaxis: subq heparin Dispo: continues to require inpatient care. Full code. Visit type - Emergency Visit Emergency Visit: Yes ED Registration Date: 04/05/19 Care time: The patient presented to the Emergency Department on the above date and was hospitalized for further evaluation of their emergent condition. - New Patient This patient is new to me today: No - Critical Care Critical Care patient: No
[2019-04-09] MEDS ORDERED: SODIUM CHLORIDE 1,000 ML IV SCH (11:15)
--- NOTE | 2019-04-09 15:01 | PN ---
Progress Note, Physician History of Present Illness: stable doing well - Current Medication List Current Medications: Active Medications Heparin Sodium (Porcine) (Heparin -) 5,000 unit SQ TID [facility] Last Admin: 04/09/19 14:39 Dose: Not Given Piperacillin Sod/Tazobactam (Sod 3.375 gm/ Dextrose) 50 mls @ 100 mls/hr IVPB Q8H-IV MARK; Protocol Last Admin: 04/09/19 10:10 Dose: 100 mls/hr Sodium Chloride (Normal Saline -) 1,000 mls @ 75 mls/hr IV ASDIR [facility] Last Admin: 04/09/19 11:37 Dose: 75 mls/hr Melatonin (Melatonin) 5 mg PO HS PRN PRN Reason: INSOMNIA Last Admin: 04/08/19 21:43 Dose: 5 mg Nicotine (Nicoderm Patch -) 14 mg TD DAILY [facility] Last Admin: 04/09/19 10:10 Dose: Not Given Non-Formulary Medication (Dextroamphetamine/Amphetamine [Adderall Xr 20 Mg Capsule]) 20 mg PO DAILY PRN PRN Reason: ANXIETY - Objective Vital Signs: Vital Signs Temperature 97.8 F 04/09/19 13:00 Pulse Rate 74 04/09/19 13:00 Respiratory Rate 18 04/09/19 13:00 Blood Pressure 140/81 04/09/19 13:00 O2 Sat by Pulse Oximetry (%) 98 04/09/19 13:00 Constitutional: Yes: No Distress, Calm Cardiovascular: Yes: S1, S2 Respiratory: Yes: Regular, CTA Bilaterally Gastrointestinal: Yes: Soft, Hypoactive Bowel Sounds Musculoskeletal: Yes: WNL Extremities: Yes: WNL Neurological: Yes: Alert, Oriented Psychiatric: Yes: Alert, Oriented Labs: CBC, BMP 04/09/19 07:10 04/09/19 07:10 INR, PTT INR 1.16 (0.82-1.09) 04/09/19 07:10 Assessment/Plan 38 year-old male with a PMH significant for diverticulitis, admitted for acute cecal diverticulitis Acute cecal diverticulitis abd pain leukocytosis nausea plan continue current mgmt continue abx close watch ct seen rest as per the team
[2019-04-10] MEDS ORDERED: DEXTROSE 5%-WATER - 50 ML IVPB ONE ×2 (02:00→09:14)
[2019-04-10] MEDS ORDERED: PIPERACILLIN/TAZOBACTAM 3.375 GM VIAL IVPB ONE ×2 (02:00→09:14)
[2019-04-10] MEDS: PIPERACILLIN/TAZOB 3.375 GM 3.375 GM in DEXTROSE 5%-WATER - 50 ML IVPB SCH ×2 (02:19→09:23)
[2019-04-10 06:28] VITALS: TEMP 97.5
[2019-04-10] MEDS: HEPARIN NA (PORCINE) 5,000 UNITS/ML 1ML VIAL SQ SCH (06:35)
[2019-04-10 07:56] LABS: BASO % 0.8 % (0-2.0); HEMATOCRIT 42.5 % (35.4-49); HEMOGLOBIN 14.6 GM/dl (11.7-16.9); LYMPH % 44.4 % (8-40); MCH 31.6 pg (25.7-33.7); MCHC 34.5 g/dl (32.0-35.9); MEAN CELL VOLUME 91.6 fl (80-96); MEAN PLT VOLUME 7.9 fl (7.5-11.1); MONO % 6.2 % (3.8-10.2); NEUT % 45.6 % (42.8-82.8); PLATELET COUNT 307 K/MM3 (134-434); RBC 4.63 M/mm3 (4.00-5.60); RDW 12.1 % (11.9-15.9)
[2019-04-10 08:02] LABS: ALBUMIN 3.4 g/dl (3.4-5.0); BILIRUBIN,TOTAL 0.4 mg/dl (0.2-1); CREATININE 1.1 mg/dl (0.55-1.3); POTASSIUM 4.6 mmol/L (3.5-5.1); TOT PROT 6.3 g/dl (6.4-8.2)
[2019-04-10 08:39] VITALS: BP 132/71; PULSE 74
[2019-04-10] MEDS: NICOTINE 14 MG/24 HOURS TOPICAL PATCH TD SCH (09:23)
--- NOTE | 2019-04-10 09:51 | DS ---
Physical Exam: SUBJECTIVE: Patient seen and examined OBJECTIVE: Vital Signs Period Temp Pulse Resp BP Sys/Berger Pulse Ox Last 24 Hr 97.5 F-98.3 F 61-81 18-20 108-140/69-81 98-100 PHYSICAL EXAM GENERAL: The patient is awake, alert, and fully oriented, in no acute distress. HEAD: Normal with no signs of trauma. EYES: PERRL, extraocular movements intact, sclera anicteric, conjunctiva clear. ENT: Ears normal, nares patent, oropharynx clear without exudates, moist mucous membranes. NECK: Trachea midline, full range of motion, supple. LUNGS: Breath sounds equal, clear to auscultation bilaterally, no wheezes, no crackles, no accessory muscle use. HEART: Regular rate and rhythm, S1, S2 without murmur, rub or gallop. ABDOMEN: Soft, nontender, nondistended, normoactive bowel sounds, no guarding, no rebound, no hepatosplenomegaly, no masses. EXTREMITIES: 2+ pulses, warm, well-perfused, no edema. NEUROLOGICAL: Cranial nerves II through XII grossly intact. Normal speech, gait not observed. PSYCH: Normal mood, normal affect. SKIN: Warm, dry, normal turgor, no rashes or lesions noted. LABS Laboratory Results - last 24 hr 04/10/19 04/10/19 07:28 07:28 WBC 7.0 RBC 4.63 Hgb 14.6 Hct 42.5 MCV 91.6 MCH 31.6 MCHC 34.5 RDW 12.1 Plt Count 307 MPV 7.9 Absolute Neuts (auto) 3.2 Neutrophils % 45.6 Lymphocytes % 44.4 H Monocytes % 6.2 Eosinophils % 3.0 Basophils % 0.8 Sodium 139 Potassium 4.6 Chloride 105 Carbon Dioxide 25 Anion Gap 9 BUN 9.0 Creatinine 1.1 Est GFR (CKD-EPI)AfAm 98.18 Est GFR (CKD-EPI)NonAf 84.71 Random Glucose 89 Calcium 9.0 Magnesium 2.0 Total Bilirubin 0.4 AST 16 ALT 19 Alkaline Phosphatase 45 Total Protein 6.3 L Albumin 3.4 HOSPITAL COURSE: Date of Admission:04/05/19 Date of Discharge: 04/10/19 Minutes to complete discharge: 35 Discharge Summary Reason For Visit: ACUTE DIVERTICULITIS OF INTESTINE Current Active Problems Abdominal pain in male (Acute) Appendicitis (Acute) Diverticulosis (Acute) Diverticulosis large intestine w/o perforation or abscess w/bleeding (Acute) Condition: Good - Instructions - Home Medications Comprehensive Discharge Medication List: Ambulatory Orders Cannabidiol (Cbd) Extract ONCE 04/05/19 Dextroamphetamine/Amphetamine [Adderall Xr 20 mg Capsule] 20 mg PO DAILY PRN 07/23 metroNIDAZOLE [Flagyl -] 500 mg PO ONCE PRN 04/05/19 This patient is new to me today: No Emergency Visit: Yes ED Registration Date: 04/05/19 Care time: The patient presented to the Emergency Department on the above date and was hospitalized for further evaluation of their emergent condition. Critical Care patient: No - Discharge Referral Referred to [facility] Med P.C.: No
--- NOTE | 2019-04-10 13:51 | PN ---
Progress Note, Physician - Current Medication List Current Medications: Active Medications Heparin Sodium (Porcine) (Heparin -) 5,000 unit SQ TID [facility] Last Admin: 04/10/19 06:35 Dose: Not Given Piperacillin Sod/Tazobactam (Sod 3.375 gm/ Dextrose) 50 mls @ 100 mls/hr IVPB Q8H-IV MARK; Protocol Last Admin: 04/10/19 09:23 Dose: 100 mls/hr Sodium Chloride (Normal Saline -) 1,000 mls @ 75 mls/hr IV ASDIR MARK Last Admin: 04/09/19 11:37 Dose: 75 mls/hr Melatonin (Melatonin) 5 mg PO HS PRN PRN Reason: INSOMNIA Last Admin: 04/08/19 21:43 Dose: 5 mg Nicotine (Nicoderm Patch -) 14 mg TD DAILY [facility] Last Admin: 04/10/19 09:23 Dose: Not Given Non-Formulary Medication (Dextroamphetamine/Amphetamine [Adderall Xr 20 Mg Capsule]) 20 mg PO DAILY PRN PRN Reason: ANXIETY - Objective Vital Signs: Vital Signs Temperature 97.5 F L 04/10/19 05:00 Pulse Rate 74 04/10/19 08:00 Respiratory Rate 20 04/10/19 08:00 Blood Pressure 132/71 04/10/19 08:00 O2 Sat by Pulse Oximetry (%) 100 04/10/19 05:00 Labs: CBC, BMP 04/10/19 07:28 04/10/19 07:28 INR, PTT INR 1.16 (0.82-1.09) 04/09/19 07:10
== END 2019-04-10 14:03 | disposition home or self-care (01) | DRG 392 ==
LOC: FER 09:04 → FM/S 14:59
PROVIDERS: ADMIT Internal Medicine; ATTEND Nurse Practitioner Acute Care
DX: K57.92 Diverticulitis of intestine, part unspecified, without perforation or abscess without bleeding (principal); R10.31 Right lower quadrant pain; F17.210 Nicotine dependence, cigarettes, uncomplicated; D72.829 Elevated white blood cell count, unspecified; R11.0 Nausea; F90.9 Attention-deficit hyperactivity disorder, unspecified type; F12.90 Cannabis use, unspecified, uncomplicated
CPT/HCPCS: 36415; 74021-TC-FY; 74177-TC; 80048; 80053; 81003; 83605; 83690; 83735; 85025; 85610; 85730; 87040; 99283-25; J0131; J1644; J7030

== ENCOUNTER 2022-10-06 12:30 | Emergency (ER) | payer OTHER ==
[2022-10-06 12:41] VITALS: BP 153/90; PULSE 82; RESP 16; TEMP 97.6; BMI 35.5
== END 2022-10-06 12:55 | disposition home or self-care (01) ==
LOC: FER 12:30
PROC: 09B1XZZ Excision of Left External Ear, External Approach (ICD-10-PCS; principal; 2022-10-06)
DX: T16.2XXA Foreign body in left ear, initial encounter (principal)
CPT/HCPCS: 99282-25

== ENCOUNTER 2022-11-14 19:39 | Emergency (ER) | payer OTHER ==
[2022-11-14 19:53] VITALS: BP 164/109; PULSE 88; RESP 16; TEMP 98.9; BMI 28.2
[2022-11-14] MEDS ORDERED: IBUPROFEN 400 MG TABLET (FP) PO ONE ×2 (20:00→20:02)
== END 2022-11-14 20:19 | disposition home or self-care (01) ==
LOC: FER 19:39
DX: M25.532 Pain in left wrist (principal); M65.842 Other synovitis and tenosynovitis, left hand; X50.0XXA Overexertion from strenuous movement or load, initial encounter; Y93.F2 Activity, caregiving, lifting
CPT/HCPCS: 99283-25

== ENCOUNTER 2023-01-07 19:30 | Emergency (ER) | payer OTHER ==
[2023-01-07 19:51] VITALS: BP 172/116; PULSE 110; RESP 16; TEMP 98.5; BMI 28.8
[2023-01-07 22:24] LABS: HIV INTERPRETATION NEGATIVE (NEGATIVE)
== END 2023-01-07 20:34 | disposition home or self-care (01) ==
LOC: FER 19:30
DX: A54.9 Gonococcal infection, unspecified (principal)
CPT/HCPCS: 36415; 81003; 86780; 87389; 87491; 87591; 99284-25